=== PATIENT | male | born 1985 | race American Indian/Alaskan Native ===

== ENCOUNTER 2020-06-08 09:30 | Emergency (ER) | payer MEDICAID ==
[2020-06-08] MEDS ORDERED: ACETAMINOPHEN 325 MG TAB PO ONE (09:45)
--- NOTE | 2020-06-08 09:46 | Emergency Department Report ---
- General Chief Complaint: Pain General Stated Complaint: BODY SORENESS Time Seen by Provider: 06/08/20 09:44 Source: patient Mode of arrival: Wheelchair Limitations: No Limitations - History of Present Illness Initial Comments: Patient is a 35-year-old male presents emergency room complaints of generalized body aches that began 3 days ago. He has associated chest congestion, cough, mild shortness of breath. He denies any fever, nausea, vomiting, diarrhea, chest pain, abdominal pain, urinary symptoms. Past medical history of hypertension. Denies any medication allergies. He is a current every day smoker. He denies any recent travel. He states he has been around someone who has been coughing but has not been diagnosed with anything. He denies any known COVID-19 contacts. - Related Data Allergies Allergy/AdvReac Type Severity Reaction Status Date / Time No Known Allergies Allergy Unverified 06/08/20 12:13 ED Review of Systems ROS: Stated complaint: BODY SORENESS Other details as noted in HPI Comment: All other systems reviewed and negative ED Past Medical Hx - Past Medical History Hx Hypertension: Yes Hx Psychiatric Treatment: Yes (BIPOLAR/ SCHIZOPHERNIC) - Social History Smoking Status: Current Every Day Smoker Substance Use Type: Marijuana ED Physical Exam - General Limitations: No Limitations General appearance: alert, in no apparent distress - Head Head exam: Present: atraumatic, normocephalic - Eye Eye exam: Present: normal appearance - ENT ENT exam: Present: mucous membranes moist - Respiratory Respiratory exam: Present: normal lung sounds bilaterally. Absent: respiratory distress, wheezes, rales, rhonchi, stridor, chest wall tenderness, accessory muscle use, decreased breath sounds, prolonged expiratory - Cardiovascular Cardiovascular Exam: Present: regular rate, normal rhythm, normal heart sounds. Absent: systolic murmur, diastolic murmur, rubs, gallop - Neurological Exam Neurological exam: Present: alert, oriented X3 - Psychiatric Psychiatric exam: Present: normal affect, normal mood - Skin Skin exam: Present: warm, dry ED Course Vital Signs 06/08/20 06/08/20 06/08/20 09:39 11:42 12:30 Temperature 97.8 F 97.8 F Pulse Rate 56 L 62 Respiratory 20 18 18 Rate Blood Pressure 113/79 Blood Pressure 119/78 [Right] O2 Sat by Pulse 97 100 Oximetry ED Medical Decision Making - Lab Data Result diagrams: 06/08/20 09:56 06/08/20 09:56 Lab Results 06/08/20 06/08/20 Range/Units 09:56 09:56 WBC 6.6 (4.5-11.0) K/mm3 RBC 4.57 (3.65-5.03) M/mm3 Hgb 14.3 (11.8-15.2) gm/dl Hct 42.5 (35.5-45.6) % MCV 93 (84-94) fl MCH 31 (28-32) pg MCHC 34 (32-34) % RDW 12.9 L (13.2-15.2) % Plt Count 162 (140-440) K/mm3 Lymph % (Auto) 20.3 (13.4-35.0) % [place] % (Auto) 7.0 (0.0-7.3) % Eos % (Auto) 1.3 (0.0-4.3) % Baso % (Auto) 0.4 (0.0-1.8) % Lymph # (Auto) 1.3 (1.2-5.4) K/mm3 [place] # (Auto) 0.5 (0.0-0.8) K/mm3 Eos # (Auto) 0.1 (0.0-0.4) K/mm3 Baso # (Auto) 0.0 (0.0-0.1) K/mm3 Seg Neutrophils % 71.0 H (40.0-70.0) % Seg Neutrophils # 4.7 (1.8-7.7) K/mm3 Sodium 141 (137-145) mmol/L Potassium 4.4 (3.6-5.0) mmol/L Chloride 104.9 (98-107) mmol/L Carbon Dioxide 27 (22-30) mmol/L Anion Gap 14 mmol/L BUN 15 (9-20) mg/dL Creatinine 1.0 (0.8-1.3) mg/dL Estimated GFR > 60 ml/min BUN/Creatinine Ratio 15 % Glucose 86 (75-100) mg/dL Calcium 9.4 (8.4-10.2) mg/dL Total Bilirubin 0.50 (0.1-1.2) mg/dL AST 30 (5-40) units/L ALT 19 (7-56) units/L Alkaline Phosphatase 75 (35-129) units/L Total Creatine Kinase 662 H (55-170) units/L Total Protein 6.9 (6.3-8.2) g/dL Albumin 4.6 (3.9-5) g/dL Albumin/Globulin Ratio 2.0 % Vital Signs 06/08/20 06/08/20 06/08/20 09:39 11:42 12:30 Temperature 97.8 F 97.8 F Pulse Rate 56 L 62 Respiratory 20 18 18 Rate Blood Pressure 113/79 Blood Pressure 119/78 [Right] O2 Sat by Pulse 97 100 Oximetry - Radiology Data Radiology results: report reviewed Ordering Physician: RODDY PEACOCK Date of Service: 06/08/20 Procedure(s): XR chest routine 2V Accession Number(s): [id number] cc: RODDY PEACOCK Fluoro Time In Minutes: CHEST 2 VIEWS INDICATION / CLINICAL INFORMATION: cough, body aches, mild SOB. COMPARISON: None available. FINDINGS: SUPPORT DEVICES: None. HEART / MEDIASTINUM: No significant abnormality. LUNGS / PLEURA: Clear lungs. No significant pleural effusion. No pneumothorax. ADDITIONAL FINDINGS: No significant additional findings. IMPRESSION: 1. No significant abnormality of the chest. Signer Name: Otoniel Gallardo MD Signed: 06/08/2020 10:35 AM Workstation Name: [id number] Transcribed By: [place] Dictated By: Otoniel Gallardo MD Electronically Authenticated By: Otoniel Gallardo MD Signed Date/Time: 06/08/20 1035 DD/ 1035 TD/TT: - Medical Decision Making Patient is a 35-year-old male presents emergency room complaints of generalized body aches that began 3 days ago. He has associated chest congestion, cough, mild shortness of breath. He denies any fever, nausea, vomiting, diarrhea, chest pain, abdominal pain, urinary symptoms. Past medical history of hypertension. Denies any medication allergies. He is a current every day smoker. He denies any recent travel. He states he has been around someone who has been coughing but has not been diagnosed with anything. He denies any known COVID-19 contacts. Vitals are stable. No abnormality on physical examination as documented in chart. Labs with elevated CK at 662, otherwise normal. Likely related to dehydration, do not suspect rhabdomyolysis. Patient given 1 L normal saline and Tylenol. Chest x-ray 1. No significant abnormality of the chest. Symptoms likely related to viral URI. Patient is presenting with the symptoms during COVID-19 pandemic, discussed COVID-19 with patient, discussed return precautions, discussed outpatient testing. Advised patient May take Tylenol as needed for discomfort. Please increase your fluid intake over the next several days. May take Tylenol as needed for fever or body aches. Follow- up with a primary care doctor for reexamination. Return to emergency room immediately for any new or worsening symptoms including but not limited to difficulty breathing, shortness of breath, severe chest pain, unable to tolerate by mouth intake, etc. Please self quarantine for 10 days from the onset of your symptoms. Please do not go out in public. If you are around others at home please wear a mask. If you need to cough or sneeze please do so in a napkin and immediately throw it away and immediately wash your hands. Wash your hands frequently. Wipe everything down. Recommend for you to get COVID-19 testing, may have this done at primary care doctor, health department, [facility], etc. Critical care attestation.: If time is entered above; I have spent that time in minutes in the direct care of this critically ill patient, excluding procedure time. ED Disposition Clinical Impression: Viral illness, Dehydration Disposition: DC-01 TO HOME OR SELFCARE Is pt being admited?: No Does the pt Need Aspirin: No Condition: Stable Instructions: Viral Respiratory Infection, [id number], Dehydration, Adult Additional Instructions: May take Tylenol as needed for discomfort. Please increase your fluid intake over the next several days. May take Tylenol as needed for fever or body aches. Follow-up with a primary care doctor for reexamination. Return to emergency room immediately for any new or worsening symptoms including but not limited to difficulty breathing, shortness of breath, severe chest pain, unable to tolerate by mouth intake, etc. Please self quarantine for 10 days from the onset of your symptoms. Please do not go out in public. If you are around others at home please wear a mask. If you need to cough or sneeze please do so in a napkin and immediately throw it away and immediately wash your hands. Wash your hands frequently. Wipe everything down. Recommend for you to get COVID-19 testing, may have this done at primary care doctor, health department, [facility], etc. Referrals: PRIMARY CARE,MD [Primary Care Provider] - 2-3 Days Time of Disposition: 11:24 Print Language: CITIZEN OF [place]
--- NOTE | 2020-06-08 10:39 | XRay Report ---
CHEST 2 VIEWS INDICATION / CLINICAL INFORMATION: cough, body aches, mild SOB. COMPARISON: None available. FINDINGS: SUPPORT DEVICES: None. HEART / MEDIASTINUM: No significant abnormality. LUNGS / PLEURA: Clear lungs. No significant pleural effusion. No pneumothorax. ADDITIONAL FINDINGS: No significant additional findings. IMPRESSION: 1. No significant abnormality of the chest. Signer Name: Otoniel Gallardo MD Signed: 06/08/2020 10:35 AM Workstation Name: [id number]
[2020-06-08 10:51] LABS: Basophils % (Auto) 0.4 % (0.0-1.8); Eosinophils # (Auto) 0.1 K/mm3 (0.0-0.4); Eosinophils % (Auto) 1.3 % (0.0-4.3); Hematocrit 42.5 % (35.5-45.6); Hemoglobin 14.3 gm/dl (11.8-15.2); Lymphocytes # (Auto) 1.3 K/mm3 (1.2-5.4); Lymphocytes % (Auto) 20.3 % (13.4-35.0); Mean Corpuscular HGB Conc 34 % (32-34); Mean Corpuscular Volume 93 fl (84-94); Monocytes # (Auto) 0.5 K/mm3 (0.0-0.8); Platelet Count 162 K/mm3 (140-440); Red Blood Count 4.57 M/mm3 (3.65-5.03); Red Cell Distribution Width 12.9 % (13.2-15.2)
[2020-06-08 11:11] LABS: Alanine Aminotransferase 19 units/L (7-56); Albumin 4.6 g/dL (3.9-5); BUN/Creatinine Ratio 15; Blood Urea Nitrogen 15 mg/dL (9-20); Calcium 9.4 mg/dL (8.4-10.2); Hemolysis Index 0
[2020-06-08] MEDS ORDERED: SODIUM CHLORIDE 0.9% 1000 ML 1,000 ML IV ONE (11:23)
[2020-06-08 12:31] VITALS: BP 119/78
== END 2020-06-08 14:50 | disposition home or self-care (01) ==
LOC: ED 09:30
DX: B34.9 Viral infection, unspecified (principal); E86.0 Dehydration; I10 Essential (primary) hypertension; F31.9 Bipolar disorder, unspecified; F17.200 Nicotine dependence, unspecified, uncomplicated; F12.10 Cannabis abuse, uncomplicated
CPT/HCPCS: 36415; 71046; 80053; 82550; 85025; 96360; 99284; J7030

== ENCOUNTER 2020-06-13 09:41 | Emergency (ER) | payer MEDICAID ==
[2020-06-13] MEDS ORDERED: SODIUM CHLORIDE 0.9% 1000 ML 1,000 ML IV ONE (10:17)
[2020-06-13] MEDS ORDERED: ONDANSETRON 4 MG/2 ML INJ IV ONE (10:17)
[2020-06-13] MEDS ORDERED: MORPHINE 4 MG/1 ML INJ IV ONE (10:17)
[2020-06-13] MEDS ORDERED: KETOROLAC 30 MG/1 ML INJ IV ONE (10:23)
--- NOTE | 2020-06-13 10:30 | Emergency Department Report ---
ED General Adult HPI - General Chief complaint: Nausea/Vomiting/Diarrhea Stated complaint: VOMITING PUI?: Yes Time Seen by Provider: 06/13/20 10:04 Source: EMS Mode of arrival: Stretcher Limitations: No Limitations - History of Present Illness Initial comments: CC: They are not giving my medications. HPI: THis is a 35 yo male with hx of bipolar disorder and schizophrenia who presents with body aches for several days. Patient was being evaluated for viral syndrome 5 days ago. He was given COVID-19 precautions. Patient takes several medications including Zyprexa Zoloft gabapentin. He states that he has not getting these medications at his personal senior living. Sodium Chlorite Operator Sissy WALTER has known Mr. Acevedo for several years. She gave history. He has been deemed mentally "incompetent" by the [facility]. S he explained that patient is low functioning regarding ADLs. He has required placement in supervised residences since adolescence. Motorman/Woman knows Mr. Acevedo very well. She explains that Mr. Acevedo July personal-senior living and does not often times make it back to the personal senior living before curfew. Consequently he does miss his nighttime medications. He has a persistent delusion that he has a job. He has a persistent delusion that he must go to work. He has never been employed as an adult. 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 I spoke with communications supervisor APS communications supervisor Bridgette. Since ED encounter 5 days ago she is concerned that this patient may have infected other residents and healthcare workers at the personal senior living. I did review electronic record. Provider at that time did document that patient had possible COVID-19. Patient was instructed to self isolate self quarantine for 10 days. APS communications supervisor is concerned that patient did not have the mental capacity to understand verbal education. She also was quite frustrated that COVID-19 testing was not available in the emergency department. -: Gradual, days(s) (5 days) Location: left, right, upper extremity, lower extremity Severity scale (0 -10): 5 Quality: aching Improves with: none Worsens with: none Associated Symptoms: denies other symptoms - Related Data Allergies Allergy/AdvReac Type Severity Reaction Status Date / Time No Known Allergies Allergy Unverified 06/08/20 12:13 ED Review of Systems ROS: Stated complaint: VOMITING Other details as noted in HPI Comment: All other systems reviewed and negative Constitutional: malaise. denies: fever Respiratory: denies: cough, shortness of breath ED Past Medical Hx - Past Medical History Hx Hypertension: Yes Hx Psychiatric Treatment: Yes (BIPOLAR/ SCHIZOPHERNIC) - Surgical History Past Surgical History?: No - Social History Smoking Status: Current Some Day Smoker Substance Use Type: Marijuana ED Physical Exam - General Limitations: No Limitations General appearance: alert, in no apparent distress - Head Head exam: Present: atraumatic, normocephalic - Eye Eye exam: Present: normal appearance - ENT ENT exam: Present: mucous membranes moist - Neck Neck exam: Present: normal inspection, full ROM - Respiratory Respiratory exam: Present: normal lung sounds bilaterally. Absent: respiratory distress, wheezes, rales, rhonchi - Cardiovascular Cardiovascular Exam: Present: regular rate, normal rhythm, normal heart sounds. Absent: systolic murmur, diastolic murmur, rubs, gallop - GI/Abdominal GI/Abdominal exam: Present: soft, normal bowel sounds. Absent: distended, tenderness, guarding, rebound - Rectal Rectal exam: Present: deferred - Extremities Exam Extremities exam: Present: normal inspection - Neurological Exam Neurological exam: Present: alert, oriented X3 - Psychiatric Psychiatric exam: Present: normal mood, flat affect, other (Hyperverbal, repetitive mouth movements) - Skin Skin exam: Present: warm, dry, intact, normal color. Absent: rash ED Course Vital Signs 06/13/20 06/13/20 06/13/20 09:49 09:52 10:01 Temperature 98 F Pulse Rate 62 62 Respiratory 16 15 23 Rate Blood Pressure 122/73 122/73 Blood Pressure [Left] O2 Sat by Pulse 99 99 Oximetry 06/13/20 06/13/20 10:02 10:31 Temperature Pulse Rate 62 66 Respiratory 15 10 L Rate Blood Pressure 123/71 Blood Pressure 122/73 [Left] O2 Sat by Pulse 99 100 Oximetry ED Medical Decision Making - Lab Data Result diagrams: 06/13/20 10:40 06/13/20 10:40 - Medical Decision Making Mr. Acevedo presents with body aches: Considering COVID-19 pandemic I suspect COVID-19 infection. I spoke extensively with rotary planer set up operator. I recommended outpatient COVID-19 testing. 5 days ago patient did present to this ER with body aches chest congestion and cough. According to electronic medical record, chest x-ray at that time at that time was negative for infiltrate.. Patient received supportive treatment with ketorolac IV Zofran and IV fluid therapy. CBC chemistry unremarkable. CBC chemistry within normal limits. Vital signs have been normal stable throughout his ED course. Critical care attestation.: If time is entered above; I have spent that time in minutes in the direct care of this critically ill patient, excluding procedure time. ED Disposition Clinical Impression: Suspected COVID-19 virus infection Disposition: DC-01 TO HOME OR SELFCARE Is pt being admited?: No Does the pt Need Aspirin: No Condition: Stable Additional Instructions: Please self isolate self quarantine for the next 5 days. Referrals: PRIMARY CARE, [Primary Care Provider] - 3-5 Days
[2020-06-13 10:57] LABS: Basophils % (Auto) 0.4 % (0.0-1.8); Eosinophils % (Auto) 0.8 % (0.0-4.3); Hematocrit 42.3 % (35.5-45.6); Hemoglobin 14.4 gm/dl (11.8-15.2); Lymphocytes # (Auto) 1.1 K/mm3 (1.2-5.4); Lymphocytes % (Auto) 17.1 % (13.4-35.0); Mean Corpuscular HGB Conc 34 % (32-34); Mean Corpuscular Volume 92 fl (84-94); Monocytes # (Auto) 0.5 K/mm3 (0.0-0.8); Monocytes % (Auto) 7.8 % (0.0-7.3); Platelet Count 149 K/mm3 (140-440); Red Blood Count 4.61 M/mm3 (3.65-5.03); Red Cell Distribution Width 12.8 % (13.2-15.2)
[2020-06-13 11:11] LABS: Alanine Aminotransferase 18 units/L (7-56); Albumin 4.5 g/dL (3.9-5); BUN/Creatinine Ratio 16; Blood Urea Nitrogen 16 mg/dL (9-20); Calcium 9.6 mg/dL (8.4-10.2); Hemolysis Index 1
[2020-06-13 12:34] VITALS: BP 124/70
== END 2020-06-13 12:52 | disposition home or self-care (01) ==
LOC: ED 09:41
DX: R53.81 Other malaise (principal); Z20.822 Contact with and (suspected) exposure to COVID-19; R11.10 Vomiting, unspecified; R05 Cough; I10 Essential (primary) hypertension; F20.9 Schizophrenia, unspecified; F17.200 Nicotine dependence, unspecified, uncomplicated; F12.10 Cannabis abuse, uncomplicated
CPT/HCPCS: 36415; 80053; 85025; 96361; 96374; 96375; 99284; J1885; J2405; J7030

== ENCOUNTER 2020-11-21 11:45 | Emergency (ER) | payer MEDICAID ==
[2020-11-21] MEDS ORDERED: KETOROLAC 30 MG/1 ML INJ IM ONE (14:41)
[2020-11-21] MEDS ORDERED: HYDROcodone/ACETAMINOPHEN 5-325 MG TAB PO ONE (14:41)
[2020-11-21] MEDS ORDERED: dexAMETHasone 20 MG/5 ML VIAL IM ONE (14:41)
--- NOTE | 2020-11-21 14:46 | Emergency Department Report ---
ED Extremity Problem HPI - General Chief complaint: Extremity Injury, Lower Stated complaint: BILAT FEET PAIN Source: patient Mode of arrival: Ambulatory Limitations: Physical Limitation - History of Present Illness Initial comments: 35-year-old -[place] male with a history of bipolar schizophrenia and gout as well as hypertension presents to the emergency room complaining of pain to both feet. Patient thinks that his gout is flaring up. Patient denies any injury to his feet. Patient does admit to eating shellfish and crabs recently. Patient denies any fever chills denies any open wounds to his foot. Patient states that his blood pressure has been good he has been taking all his mental health medications without any difficulties. Denies any suicidal homicidal ideation. MD Complaint: joint swelling, joint paint Location: left, right, toe History of Same: Yes -: Yes arthralgia Severity scale (0 -10): 10 Quality: burning, stabbing, sharp Consistency: constant Improves with: nothing Worsens with: weight bearing, walking, palpation Associated Symptoms: denies other symptoms - Related Data Previous Rx's Medication Instructions Recorded Last Taken Type Colchicine [Colcrys] 0.6 mg PO BID #6 tab 11/21/20 Unknown Rx Naproxen [Naprosyn] 500 mg PO Q12H PRN #20 tablet 11/21/20 Unknown Rx Prednisone [predniSONE 10 mg 10 mg PO .TAPER #1 tab.ds.pk 11/21/20 Unknown Rx (6-Day Pack, 21 Tabs)] traMADoL [Ultram 50 MG tab] 50 mg PO Q6HR PRN #12 tablet 11/21/20 Unknown Rx Allergies Allergy/AdvReac Type Severity Reaction Status Date / Time No Known Allergies Allergy Verified 11/21/20 12:13 ED Review of Systems ROS: Stated complaint: BILAT FEET PAIN Other details as noted in HPI Comment: All other systems reviewed and negative ED Past Medical Hx - Past Medical History Hx Hypertension: Yes Hx Psychiatric Treatment: Yes (BIPOLAR/ SCHIZOPHERNIC) Additional medical history: GOUT - Surgical History Additional Surgical History: ARM - Social History Smoking Status: Current Some Day Smoker Substance Use Type: Marijuana - Medications Home Medications: Home Medications Medication Instructions Recorded Confirmed Last Taken Type Colchicine [Colcrys] 0.6 mg PO BID #6 tab 11/21/20 Unknown Rx Naproxen [Naprosyn] 500 mg PO Q12H PRN #20 tablet 11/21/20 Unknown Rx Prednisone [predniSONE 10 mg 10 mg PO .TAPER #1 tab.ds.pk 11/21/20 Unknown Rx (6-Day Pack, 21 Tabs)] traMADoL [Ultram 50 MG tab] 50 mg PO Q6HR PRN #12 tablet 11/21/20 Unknown Rx ED Physical Exam - General Limitations: Physical Limitation General appearance: alert, in no apparent distress - Head Head exam: Present: atraumatic, normocephalic - Eye Eye exam: Present: normal appearance - ENT ENT exam: Present: normal external ear exam - Neck Neck exam: Present: normal inspection, full ROM - Respiratory Respiratory exam: Absent: respiratory distress, accessory muscle use - Cardiovascular Cardiovascular Exam: Present: regular rate - Extremities Exam Extremities exam: Present: full ROM, tenderness (Bilateral great toe), joint swelling (Bilateral great toe) - Back Exam Back exam: Present: normal inspection, full ROM - Neurological Exam Neurological exam: Present: alert, oriented X3, abnormal gait (Ambulating on crutches) - Psychiatric Psychiatric exam: Present: normal affect, normal mood - Skin Skin exam: Present: warm, dry, intact, normal color. Absent: rash ED Course Vital Signs 11/21/20 12:16 Temperature 98.0 F Pulse Rate 70 Respiratory 20 Rate Blood Pressure 118/67 O2 Sat by Pulse 98 Oximetry ED Medical Decision Making - Medical Decision Making 35-year-old -[place] male with a history of bipolar schizophrenia and gout as well as hypertension presents to the emergency room complaining of pain to both feet. Patient thinks that his gout is flaring up. Patient denies any injury to his feet. Patient does admit to eating shellfish and crabs recently. Patient denies any fever chills denies any open wounds to his foot. Patient states that his blood pressure has been good he has been taking all his mental health medications without any difficulties. Denies any suicidal homicidal ideation. Toradol, colchicine, [place] and dexamethasone has been ordered. Patient be discharged on naproxen, prednisone tramadol and colchicine Critical care attestation.: If time is entered above; I have spent that time in minutes in the direct care of this critically ill patient, excluding procedure time. ED Disposition Clinical Impression: Exacerbation of gout Disposition: - TO HOME OR SELFCARE Is pt being admited?: No Does the pt Need Aspirin: No Condition: Stable Instructions: Low-Purine Eating Plan Additional Instructions: Please take medications as prescribed. Follow-up with a primary care provider. Prescriptions: Colchicine [Colcrys] 0.6 mg PO BID #6 tab Naproxen [Naprosyn] 500 mg PO Q12H PRN #20 tablet PRN Reason: Pain , Severe (7-10) Prednisone [predniSONE 10 mg (6-Day Pack, 21 Tabs)] 10 mg PO .TAPER #1 tab.ds.pk traMADoL [Ultram 50 MG tab] 50 mg PO Q6HR PRN #12 tablet PRN Reason: Pain Referrals: KATIE OCONNELL MD [Staff Physician] - 3-5 Days Forms: Work/School Release Form(ED)
[2020-11-21] MEDS ORDERED: COLCHICINE 0.6 MG TAB PO ONE (15:30)
[2020-11-21 16:59] VITALS: BP 120/63
== END 2020-11-21 17:03 | disposition home or self-care (01) ==
LOC: ED 11:45
DX: M10.9 Gout, unspecified (principal); I10 Essential (primary) hypertension; F17.200 Nicotine dependence, unspecified, uncomplicated
CPT/HCPCS: 96372; 99282; J1100; J1885